=== PATIENT | male | born 1950 | race Caucasian/White ===

== ENCOUNTER → 2018-01-07 | Outpatient (CLI) | payer MEDICARE, OTHER ==
--- NOTE | 2018-01-07 12:10 | PCVCIMAG ---
EXAM: BILATERAL RENAL ULTRASOUND AND BILATERAL RENAL DUPLEX INDICATION: Hypertension. FINDINGS: Right kidney: Length measures 12.5 cm. No hydronephrosis or extensive renal scarring. Right renal duplex: Adequate technical quality. No sonographic evidence of renal artery stenosis. The aortic to renal artery ratio is 1.4. The renal vein is patent. Left kidney: Length measures 13.2 cm. No hydronephrosis or extensive renal scarring. Left renal duplex: Adequate technical quality. No sonographic evidence of renal artery stenosis. The aortic to renal artery ratio is 1.6. The renal vein is patent. Bladder: No obvious abnormalities. IMPRESSION: No significant renal artery stenosis. No hydronephrosis bilaterally. LOC:[id number]
--- NOTE | 2018-01-07 12:13 | PCVCIMAG ---
APPROVED REPORT Study performed: 01/07/2018 10:05:02 EXAM: Comprehensive 2D, Doppler, and color-flow Echocardiogram Patient Location: Echo lab Status: routine BSA: 2.74 HR: 52 bpmBP: 168/108 mmHg Rhythm: Bradycardia Other Information Study Quality: Adequate Risk Factors: Cardiac Risk Factors: HTN Indications Dyspnea HOCM, hypertensive episode, parox A Fib 2D Dimensions IVSd: 16.91 (7-11mm) LVDd: 48.03 mm PWd: 13.10 (7-11mm)Ascending Ao: 42.66 (22-36mm) LVDs: 36.26 (25-40mm) Left Atrium: 50.20 (27-40mm) Aortic Root: 34.15 mm LV Single Plane 4CH: 57.88 % LV Single Plane 2CH: 56.62 % Biplane EF: 58.1 % Volumes Left Atrial Volume (Systole) Single Plane 4CH: 115.43 mLSingle Plane 2CH: 124.97 mL LA ESV Index: 45.00 mL/m2 Aortic Valve AoV Peak Baltazar.: 1.83 m/s AO Peak Gr.: 13.34 mmHgLVOT Max P.93 mmHg LVOT Max V: 1.47 m/s Mitral Valve E/A Ratio: 1.4 MV Decel. Time: 249.87 ms MV E Max Baltazar.: 0.89 m/s MV A Baltazar.: 0.62 m/s IVRT: 115.34 ms Pulmonary Valve PV Peak Baltazar.: 0.98 m/sPV Peak Gr.: 3.86 mmHg Pulmonary Vein P Vein S: 0.44 m/sP Vein A: 0.34 m/s P Vein D: 0.53 m/sP Vein A Dur.: 166.1 msec P Vein S/D Ratio: 0.83 Tricuspid Valve TR Peak Abltazar.: 2.56 m/s TR Peak Gr.: 26.29 mmHg Left Ventricle The left ventricle is normal size. There is normal LV segmental wall motion. Moderate concentric left ventricular hypertrophy. The left ventricular systolic function is normal. The left ventricular ejection fraction is within the normal range. LVOT with minimal obstructive gradient. LVOT velocity rest- 1.5 m/s and peak gradient 9 mmHg, LVOT w/ valsalva 1.8 m/s and peak gradient 13 mmHg, unchanged from previous study. LVEF is 55-60%. Grade I - abnormal relaxation pattern. Right Ventricle The right ventricle is normal size. The right ventricular systolic function is normal. Atria Left atrium is moderately dilated. Right atrium is mildly dilated. Aortic Valve The aortic valve is normal in structure. Mild aortic regurgitation. There is no aortic valvular stenosis. Mitral Valve The mitral valve is normal in structure. There is trace mitral valve regurgitation noted. No evidence of mitral valve stenosis. Tricuspid Valve The tricuspid valve is normal in structure. Mild tricuspid regurgitation with PAP of 33 mmHg. Pulmonic Valve The pulmonary valve is normal in structure. There is no pulmonic valvular regurgitation. Great Vessels The aortic root is normal in size. The ascending aorta is mildly dilated to 4.3 cm. IVC is normal in size and collapses >50% with inspiration. Pericardium There is no pericardial effusion. There is no pleural effusion. <Conclusion> The left ventricle is normal size. Moderate concentric left ventricular hypertrophy. The left ventricular systolic function is normal. The left ventricular ejection fraction is within the normal range. LVOT with minimal obstructive gradient. LVOT velocity rest- 1.5 m/s and peak gradient 9 mmHg, LVOT w/ valsalva 1.8 m/s and peak gradient 13 mmHg, unchanged from previous study. LVEF is 55-60%. Grade I - abnormal relaxation pattern. The right ventricle is normal size. Left atrium is moderately dilated. Right atrium is mildly dilated. Mild aortic regurgitation. There is trace mitral valve regurgitation noted. Mild tricuspid regurgitation with PAP of 33 mmHg. The aortic root is normal in size. There is no pericardial effusion.
== END | disposition home or self-care (01) ==
LOC: PCVCIMAG 09:54
PROVIDERS: ATTEND Internal Medicine Cardiovascular Disease
DX: I08.2 Rheumatic disorders of both aortic and tricuspid valves (principal); I48.0 Paroxysmal atrial fibrillation; R07.9 Chest pain, unspecified; R06.00 Dyspnea, unspecified; I10 Essential (primary) hypertension
CPT/HCPCS: 76770; 93306; 93975

== ENCOUNTER → 2018-06-17 | Outpatient (CLI) | payer MEDICARE | END | disposition home or self-care (01) | LOC: PCVCCLINIC 15:50 | PROVIDERS: ATTEND Internal Medicine Cardiovascular Disease | DX: I11.9 Hypertensive heart disease without heart failure (principal); I42.1 Obstructive hypertrophic cardiomyopathy; I48.0 Paroxysmal atrial fibrillation; E78.5 Hyperlipidemia, unspecified; G47.30 Sleep apnea, unspecified; Z87.891 Personal history of nicotine dependence; Z79.82 Long term (current) use of aspirin | CPT/HCPCS: 36415; 80061; 93005; G0463 ==

== ENCOUNTER → 2019-01-24 | Outpatient (CLI) | payer MEDICARE ==
--- NOTE | 2019-01-24 17:35 | PCVCIMAG ---
APPROVED REPORT Study performed: 01/24/2019 14:36:43 EXAM: Comprehensive 2D, Doppler, and color-flow Echocardiogram Patient Location: Echo lab Status: routine BSA: 2.47 HR: 49 bpmBP: 160/100 mmHg Rhythm: NSR Other Information Study Quality: Adequate Risk Factors: Cardiac Risk Factors: HTN Indications PAF, Sleep Apnea, LVH 2D Dimensions IVSd: 17.84 (7-11mm)LVOT Diam: 26.92 (18-24mm) LVDd: 41.86 mm PWd: 15.54 (7-11mm)Ascending Ao: 42.40 (22-36mm) LVDs: 24.25 (25-40mm) Left Atrium: 45.38 (27-40mm) Aortic Root: 37.07 mm LV Single Plane 4CH: 68.63 % LV Single Plane 2CH: 61.93 % Biplane EF: 64.8 % Volumes Left Atrial Volume (Systole) Single Plane 4CH: 81.13 mLSingle Plane 2CH: 55.32 mL LA ESV Index: 27.00 mL/m2 Aortic Valve AoV Peak Baltazar.: 1.69 m/s AO Peak Gr.: 13.86 mmHgLVOT Max P.19 mmHg AO Mean Gr.: 5.65 mmHg AO V2 Mean: 1.14 m/sLVOT Max V: 1.14 m/s AO V2 VTI: 37.01 cm NATHALIA Vmax: 3.83 cm2 Mitral Valve E/A Ratio: 1.0 MV Decel. Time: 336.12 ms MV E Max Baltazar.: 0.72 m/s MV A Baltazar.: 0.70 m/s TDI E/Lateral E': 9.00E/Medial E': 7.20 Medial E' Baltazar.: 0.10 m/s Lateral E' Baltazar.: 0.08 m/s Pulmonary Valve PV Peak Gr.: 3.22 mmHg Pulmonary Vein P Vein S: 0.48 m/sP Vein A: 0.38 m/s P Vein D: 0.33 m/sP Vein A Dur.: 141.9 msec P Vein S/D Ratio: 1.45 Left Ventricle LVOT minimal obstructiive gradient rest 1.64m/s and peak gradient of 12mmHg. LVOT with valsalva 1.87 m/s and peak gradient of 14mmHg. There is normal LV segmental wall motion. Moderate concentric left ventricular hypertrophy. Left ventricular systolic function is normal. The left ventricular ejection fraction is within the normal range. LVEF is 55-60%. Grade I - abnormal relaxation pattern. Right Ventricle The right ventricle is normal size. The right ventricular systolic function is normal. Atria The left atrium size is normal. The right atrium size is normal. Aortic Valve The aortic valve is normal in structure. Trace aortic regurgitation. There is no aortic valvular stenosis. Mitral Valve The mitral valve is normal in structure. There is no mitral valve regurgitation noted. No evidence of mitral valve stenosis. Tricuspid Valve The tricuspid valve is normal in structure. There is no tricuspid valve regurgitation noted. Pulmonic Valve The pulmonary valve is normal in structure. There is no pulmonic valvular regurgitation. Great Vessels The aortic root is normal in size. IVC is normal in size and collapses >50% with inspiration. Pericardium There is no pericardial effusion. <Conclusion> Moderate concentric left ventricular hypertrophy. LVOT minimal obstructiive gradient rest 1.64m/s and peak gradient of 12mmHg. LVOT with valsalva 1.87 m/s and peak gradient of 14mmHg. LVEF is 55-60%. Grade I - abnormal relaxation pattern. The right ventricle is normal size. The left atrium size is normal. Trace aortic regurgitation. There is no mitral valve regurgitation noted. There is no tricuspid valve regurgitation noted. The aortic root is normal in size. There is no pericardial effusion.
== END | disposition home or self-care (01) ==
LOC: PCVCIMAG 14:24
PROVIDERS: ATTEND Internal Medicine Cardiovascular Disease
DX: I42.1 Obstructive hypertrophic cardiomyopathy (principal); E78.5 Hyperlipidemia, unspecified; I11.9 Hypertensive heart disease without heart failure; I48.0 Paroxysmal atrial fibrillation; Z79.82 Long term (current) use of aspirin; Z87.891 Personal history of nicotine dependence
CPT/HCPCS: 36415; 80061; 93005; 93306; G0463